=== PATIENT | male | born 1960 | race Caucasian/White ===

== ENCOUNTER 2019-08-24 12:01 | Outpatient (CLI) | payer OTHER ==
--- NOTE | 2019-08-24 12:17 | RAD ---
XR Chest Pa Lat STANDARD HISTORY: Chest pain COMPARISON: None FINDINGS: The heart size is normal. The lungs are well expanded without focal areas of consolidation, pneumothorax or pleural effusions. There is a small calcified granuloma in the right lung. IMPRESSION: No radiographic evidence of acute cardiopulmonary process.
== END 2019-08-24 12:02 | disposition home or self-care (01) ==
LOC: NAV RAD 12:01
DX: L40.0 Psoriasis vulgaris (principal)
CPT/HCPCS: 71046